=== PATIENT | female | born 1995 | race Caucasian/White ===

== ENCOUNTER 2020-03-12 11:42 | Emergency (ER) | payer BC, MEDICAID, SELFPAY ==
[2020-03-12 11:50] VITALS: PULSE 80; RESP 18; TEMP 36.4; O2SAT 98; BMI 25.7
--- NOTE | 2020-03-12 11:54 | HMH.EDUTC ---
[facility] [place] Dis[place] Clinical Impression: Exposure to COVID-19 virus Disposition: Home, Self-Care Condition on Discharge: Good Instructions: Preventing the Spread of Coronavirus Discharge Instructions Additional Instructions: Drink plenty of fluids. Take tylenol for pain or fever. Return if you begin to have difficulty breathing. Follow up with your regular doctor. GO TO THE ER FOR ANY WORSENING SYMPTOMS Referrals: Kit Hutchins MD [Primary Care Provider] - Time of Disposition: 12:12 Medical Decision Making - Medical Records Medical records reviewed: No: I reviewed the patient's medical records. - Jose Inquiry Pt receiving controlled substance: No Vital Signs: 03/12/20 11:50 03/12/20 12:23 Temperature 97.5 F L 97.5 F L Temperature Source Temporal Artery Scan Pulse Rate 80 Pulse Rate [Right Brachial] 80 Respiratory Rate 18 18 Blood Pressure 00/00 L 02 Sat by Pulse Oximetry 98 Oxygen Delivery Method Room Air - Lab Data Lab Results 03/12/20 11:50: SARS-CoV-2 (PCR) Detected [facility] [place] HPI - General Stated complaint: covid exposure Time Seen by Provider: 03/12/20 11:55 - History of Present Illness Provider Complaint: She states that she may have been exposed to covid and she needs to be tested. - Related Data Allergies Allergy/AdvReac Type Severity Reaction Status Date / Time No Known Allergies Allergy Verified 04/25/18 17:00 [facility] History - Hepatitis A Screen Attestation statement:: This patient has been screened for Hepatitis A risk factors. I have reviewed the patient's past medical history: Yes ROS Obtained: Yes All systems reviewed & no additional complaints - Constitutional Constitutional: Reports system reviewed and no additional complaints, except as docu - Eyes Eyes: Reports system reviewed and no additional complaints, except as docu - ENT Ears, Nose, Mouth, and Throat: Reports system reviewed and no additional complaints, except as docu - Cardiovascular Cardiovascular: Reports system reviewed and no additional complaints, except as docu - Respiratory Respiratory: Yes system reviewed and no additional complaints, except as docu - Gastrointestinal Gastrointestingal: Reports: system reviewed and no additional complaints, except as docu Physical Exam - General General appearance: alert, in no apparent distress - Head Head exam: atraumatic, normocephalic, normal inspection - Eye Eye exam: Present: normal appearance, PERRL, EOMI - ENT ENT exam: Present: normal exam, normal oropharynx, mucous membranes moist, TM's normal bilaterally, normal external ear exam - Neck Neck exam: Present: normal inspection, full ROM, trachea midline. Absent: meningismus, lymphadenopathy - Chest Chest inspection: Present: normal inspection, symmetric chest wall rise. Absent: tenderness - Respiratory Respiratory exam: Present: normal lung sounds bilaterally. Absent: respiratory distress - Cardiovascular Cardiovascular exam: Present: regular rate, normal rhythm. Absent: JVD - Abdominal Exam Abdominal exam: Present: soft, normal bowel sounds. Absent: distention, tenderness, guarding - Extremities Exam Extremities exam: Present: normal inspection, full ROM, normal capillary refill. Absent: calf tenderness - Back Exam Back exam: Present: normal inspection. Absent: tenderness - Neurological Exam Neurological exam: Present: alert, oriented X3 - Psychiatric Psychiatric exam: Present: normal affect, normal mood - Skin Skin exam: Present: warm, dry, intact, normal color - Lymphatic Lymphatic Findings: no adenopathy
[2020-03-12 12:23] VITALS: BP 00/00; PULSE 80; RESP 18; TEMP 36.4; O2SAT 98
[2020-03-13 09:28] LABS: Covid-19 Nasal PCR Sendout UK DETECTED
--- NOTE | 2020-03-13 09:31 | PC.NURSE ---
patient notified of positive covid test results
== END 2020-03-12 12:25 | disposition home or self-care (01) ==
PROVIDERS: Emergency Provider Nurse Practitioner Family; PCP Family Medicine
DX: U07.1 COVID-19 (principal)
CPT/HCPCS: 99201; U0003

== ENCOUNTER 2020-03-19 13:24 | Emergency (ER) | payer BC, MEDICAID, SELFPAY ==
--- NOTE | 2020-03-19 13:43 | PC.NURSE ---
States that she tested positive for COVID 10 days ago and was recently released out of quarantine by the Health Department. Here for a retest because she thought it was a requirement. Per patient if the retest was not required she did not want to get tested and would rather just go on home.
[2020-03-19 13:44] VITALS: BP 0/0; PULSE 0; RESP 0; TEMP -17.7; TEMP 0; O2SAT 0
== END 2020-03-19 13:45 | disposition left against medical advice (07) ==
LOC: UTC 13:37
PROVIDERS: Emergency Provider Nurse Practitioner; PCP Family Medicine
DX: Z53.21 Procedure and treatment not carried out due to patient leaving prior to being seen by health care provider (principal)

== ENCOUNTER → 2020-04-10 11:17 | Outpatient (CLI) | payer MEDICAID, SELFPAY | PROVIDERS: PCP Family Medicine; Visit Provider Nurse Practitioner Family | DX: Z11.1 Encounter for screening for respiratory tuberculosis (principal) ==

== ENCOUNTER 2020-11-25 13:46 | Emergency (ER) | payer BC, MEDICAID, SELFPAY ==
[2020-11-25 13:46] VITALS: BP 149/83; PULSE 87; RESP 20; TEMP 37.6; O2SAT 100; BMI 24.0
--- NOTE | 2020-11-25 15:17 | HMH.EDUTC ---
[facility] [place] Clinical Impression: Pharyngitis Qualifiers: Pharyngitis/tonsillitis etiology: unspecified etiology Qualified Code(s): J02.9 - Acute pharyngitis, unspecified Disposition: Home, Self-Care Condition on Discharge: Good Instructions: DI for Strep Throat Additional Instructions: Drink plenty of fluids. Take tylenol or ibuprofen for pain or fever. Take the medications as directed. Follow up with your regular doctor. GO TO THE ER FOR ANY WORSENING SYMPTOMS Throw your tooth brush away and get a new one. Quarantine until you know the results of your covid-19 test. If it is positive, the health department should call you and give you further instructions about your length of Quarantine and other things. Notify your school or workplace of your results and follow their instructions regarding return to work/school. Prescriptions: Brompheniramine/Pseudoephed/Dm [Bromfed Dm Cough Syrup] 5 ml PO Q6HP PRN #240 ml PRN Reason: Cough Transmission Status: Received by [facility] #[id number] Amoxicillin [Amoxicillin 500mg Tab] 500 mg PO TID 10 Days #30 tab Transmission Status: Received by [facility] #[id number] predniSONE [Deltasone 10mg tablet] 10 mg PO BID 3 Days #6 tab Transmission Status: Received by [facility] #[id number] Referrals: Elder Lobato [Primary Care Provider] - Time of Disposition: 15:21 Medical Decision Making - Medical Records Medical records reviewed: No: I reviewed the patient's medical records. - Jose Inquiry Pt receiving controlled substance: No Vital Signs: 11/25/20 13:46 Temperature 99.7 F H Temperature Source Oral Pulse Rate [Left Radial] 87 Respiratory Rate 20 Blood Pressure [Right Arm] 149/83 H Blood Pressure Mean [Right Arm] 105 Blood Pressure Source [Right Arm] Automatic Cuff Blood Pressure Position [Right Arm] Sitting 02 Sat by Pulse Oximetry 100 Oxygen Delivery Method Room Air - Lab Data Lab results reviewed: Yes: I reviewed the patient's lab results. Orders (Tests/Meds): ORDERS Category Date Time Status Covid-19 Nasal PCR ([facility]) Routine Lab 11/25/20 15:30 Ordered [facility] [place] - General Stated complaint: possible strep Time Seen by Provider: 11/25/20 13:50 Mode of Arrival: Ambulatory Source of Information: Patient Limitations: No Limitations Description of Symptoms (Recalled from Triage Doc. by RN): sore throat and MEDLEY HEENT Symptoms (Recalled from RN notes): Yes Resp Symptoms (Recalled from RN notes): No Skin Symptoms (Recalled from RN notes): No MS Symptoms (Recalled from RN notes): No Functional Status (Recalled from RN notes): na - History of Present Illness Provider Complaint: She c/o sore throat for the past 2 days. She has ran a low grade fever also. She denies any known exposure to covid-19. - Related Data Previous Rx's Medication Instructions Recorded Amoxicillin [Amoxicillin 500mg Tab] 500 mg PO TID 10 Days #30 tab 11/25/20 Brompheniramine/Pseudoephed/Dm 5 ml PO Q6HP PRN #240 ml 11/25/20 [Bromfed Dm Cough Syrup] predniSONE [Deltasone 10mg tablet] 10 mg PO BID 3 Days #6 tab 11/25/20 Allergies Allergy/AdvReac Type Severity Reaction Status Date / Time No Known Allergies Allergy Verified 04/25/18 17:00 - Worker's Comp Is this a Worker's Comp case?: No [facility] History - Hepatitis A Screen Drug use history?: No High risk sexual behaviors?: No History of sexually transmitted infection?: No Currently employed?: No Childcare worker?: No Do you have indoor plumbing?: Yes Do you have electricity?: Yes Attestation statement:: This patient has been screened for Hepatitis A risk factors. I have reviewed the patient's past medical history: Yes - Social History Alcohol Intake: never Occupational Status: other ROS Obtained: Yes All systems reviewed & no additional complaints - Constitutional Constitutional: Reports as per HPI - Eyes Eyes: Denies eye discharge - ENT Ears, Nose, Mouth,
[2020-11-25 15:36] VITALS: BP 149/83; PULSE 87; RESP 20; TEMP 37.6; O2SAT 100
[2020-11-27 09:17] LABS: UTC Strep Screen (Rapid) Negative (Negative)
== END 2020-11-25 15:38 | disposition home or self-care (01) ==
PROVIDERS: Emergency Provider Nurse Practitioner Family; PCP Pediatrics
DX: J02.9 Acute pharyngitis, unspecified (principal); Z20.822 Contact with and (suspected) exposure to COVID-19
CPT/HCPCS: 87880; 99203; G0463; U0003

== ENCOUNTER → 2021-12-06 09:00 | Outpatient (CLI) | payer BC, MEDICAID, SELFPAY ==
[2021-12-06 09:24] VITALS: BMI 20.9
== END ==
PROVIDERS: Visit Provider Nurse Practitioner Family
DX: Z11.1 Encounter for screening for respiratory tuberculosis (principal)
CPT/HCPCS: 86580

== ENCOUNTER 2022-05-13 08:57 | Emergency (ER) | payer BC, MEDICAID, SELFPAY ==
[2022-05-13 09:05] VITALS: BP 123/70; PULSE 101; RESP 18; TEMP 36.9; O2SAT 98; BMI 23.9
--- NOTE | 2022-05-13 09:30 | EXP.UTC ---
Discharge Plan Disposition Patient Disposition: Home, Self-Care Condition: Good Referrals Follow up/Referrals: Provider,Referral, [Primary Care Provider] - See instructions Activity Restrictions/Add. Instructions Additional Instructions/Restrictions: *Monitor Temp, Over the counter Motrin or Tylenol as directed/as needed Tylenol every 4 hours and Motrin every 6 hours (as long as your family doctor has told you that you can take it) for fever or pain. and straight to ER if unable to lower temp less than 101.0 after medication given *Warm salt water gargles may help to soothe the throat *Throat Lozenges? *Warm fluids like tea with honey may help to soothe the throat? *Sleep elevated *Humidifier/Vaporizer Over the counter Sudafed may help with nasal congestion if you can take it Over the counter Robitussin may help with cough Your throat swab was sent for culture. Those results are typically sent to your primary care. Be sure to follow up in 2-3 days with your family doctor/primary care physician if no improvement so they can review those result and treat if necessary. If you don?t have a primary care doctor, I recommend you get one but in the mean time, you will have to return to a walk in clinic Follow up IMMEDIATELY for new or worsening symptoms or no Noticeable improvement over the next 48-72 hours. 911 for difficulty breathing or swallowing You were tested for today for COVID19 your test result should be back in the next 24-48 hours, you may check your results on the [facility] Clinical Impressions Clinical Impression: Viral upper respiratory infection Stand Alone Forms Stand Alone Forms: Work/School Release Instructions Patient Instructions: DI for Nasal Congestion, Cough, Sore Throat Discharge ED Provider: [place]ancourt [facility] [place] General Stated complaint: Headache sore throat fever covid test Mode of Arrival: Ambulatory Source of Information: Patient Limitations: No Limitations Time Seen by Provider: 05/13/22 09:30 Description of Symptoms (Recalled from Triage Doc. by RN): PATIENT C/O BODY ACHES, HEADACHE AND SINUS PRESSURE X 3 DAYS HEENT Symptoms (Recalled from RN notes): Yes Resp Symptoms (Recalled from RN notes): No Skin Symptoms (Recalled from RN notes): No MS Symptoms (Recalled from RN notes): No Functional Status (Recalled from RN notes): WNL History of Present Illness Provider Complaint: Patient states that she was around her friends son last week that has since tested positive for COVID States that she has been having sinus congestion, sore throat, body aches and chills for the last couple of days and she wanted to come in and get tested for Strep throat and COVID Related Data Allergies Allergy/AdvReac Type Severity Reaction Status Date / Time No Known Allergies Allergy Verified 04/25/18 17:00 Worker's Comp Is this a Worker's Comp case?: No [facility] Disclaimer: The information contained in this section may have been updated after the patient was seen, as this information can be updated by other users. Medical History (Updated 05/13/22 @ 09:37 by Harmony Betancourt APRN) No significant past medical history Social History (Updated 05/13/22 @ 09:17 by Marzena Waters RN) Smoking Status: Unknown if ever smoked alcohol intake: never current occupational status: other Travel in the last 8 weeks: None ROS Obtained: Yes All systems reviewed & no additional complaints except as documented and Yes Systems reviewed as appropriate & no additional complaints except as documented Constitutional Constitutional: Reports system reviewed and no additional complaints, except as documented, Reports as per HPI, Reports body ache, Reports chills and Reports headache(s) ENT Ears, Nose, Mouth, and Throat: Reports system reviewed and no additional complaints, except as documented, Reports as per HPI, Reports headache(s), Reports nasal congestion and Reports sore thr
[2022-05-13 09:38] LABS: Influenza A, PCR Not Detected (NotDetected); Influenza B, PCR Not Detected (NotDetected)
[2022-05-13 09:39] VITALS: BP 123/70; PULSE 101; RESP 18; TEMP 36.9; O2SAT 98
[2022-05-13 09:39] LABS: UTC Strep Screen (Rapid) Negative (Negative)
[2022-05-13 10:16] LABS: Coronavirus 19, PCR Detected (NotDetected)
== END 2022-05-13 09:43 | disposition home or self-care (01) ==
PROVIDERS: Emergency Provider Nurse Practitioner
DX: U07.1 COVID-19 (principal); R51.9 Headache, unspecified; J02.9 Acute pharyngitis, unspecified; R50.9 Fever, unspecified
CPT/HCPCS: 87880; 99212; 99213; C9803; G0463; U0003; U0005

== ENCOUNTER 2023-01-17 08:20 | Emergency (ER) | payer BC, MEDICAID, SELFPAY ==
[2023-01-17 08:30] VITALS: BP 111/68; PULSE 85; RESP 20; TEMP 36.9; O2SAT 98; BMI 25.9
--- NOTE | 2023-01-17 08:42 | EXP.UTC ---
Discharge Plan Disposition Patient Disposition: Home, Self-Care Condition: Good Prescriptions Prescriptions: New azithromycin [Zithromax] 250 mg tablet 250 mg PO UD DOSE PK Qty: 6 0RF Rx Instructions: Take two (2) tablets today, then one (1) tablet days #2 thru #5 methylprednisolone 4 mg Tablets,Dose Pack 4 mg PO DIRECTED Qty: 21 0RF [id number] [Bromfed DM] 2-30-10 mg/5 mL Syrup 5 ml PO Q6H PRN (Reason: Cough) Qty: 240 0RF Referrals Follow up/Referrals: Provider,Referral, [Primary Care Provider] - See instructions Activity Restrictions/Add. Instructions Additional Instructions/Restrictions: Drink plenty of fluids. Take tylenol or ibuprofen for pain or fever. Take the medications as directed. Follow up with your regular doctor. GO TO THE ER FOR ANY WORSENING SYMPTOMS Clinical Impressions Clinical Impression: Bronchitis, Acute viral syndrome Stand Alone Forms Stand Alone Forms: Work/School Release Instructions Patient Instructions: DI for Viral Syndrome Discharge ED Provider: Liam Arias [facility] [place] General Stated complaint: headache,sore throat,runny nose Time Seen by Provider: 01/17/23 08:41 History of Present Illness Provider Complaint: She states that for the past 4 days she has had sinus and chest congestion, low grade fever, chills, and sore throat. 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 Related Data Previous Rx's Medication Instructions Recorded azithromycin 250 mg tablet 250 mg PO UD DOSE PK #6 tabs 01/17/23 (Zithromax) azrkysumabhzvdj-ubwcccicaejxoyh-OR 5 ml PO Q6H PRN Cough #240 mL 01/17/23 2 mg-30 mg-10 mg/5 mL oral syrup (Bromfed DM) methylprednisolone 4 mg tablets in 4 mg PO DIRECTED #21 tabs 01/17/23 a dose pack Allergies Allergy/AdvReac Type Severity Reaction Status Date / Time No Known Allergies Allergy Verified 04/25/18 17:00 [facility] Disclaimer: The information contained in this section may have been updated after the patient was seen, as this information can be updated by other users. Medical History (Updated 01/17/23 @ 08:53 by Liam Arias APRN) No significant past medical history Social History (Updated 05/13/22 @ 09:17 by Marzena Waters RN) Smoking Status: Unknown if ever smoked alcohol intake: never current occupational status: other Travel in the last 8 weeks: None ROS Obtained: Yes All systems reviewed & no additional complaints except as documented Constitutional Constitutional: Reports chills and Reports fever(s) Eyes Eyes: Denies eye discharge ENT Ears, Nose, Mouth, and Throat: Reports as per HPI Cardiovascular Cardiovascular: Denies chest pain Respiratory Respiratory: Denies chest congestion and Reports cough Gastrointestinal Gastrointestingal: Reports nausea; Denies abdominal pain, constipation, cramping, diarrhea or vomiting Musculoskeletal Musculoskeletal: Denies arthralgias Integumentary/Breasts Skin/Breast: Denies rash Neurologic Neurologic: Denies paresthesias Physical Exam General General appearance: alert and in no apparent distress Head Head exam: atraumatic, normocephalic and normal inspection Eye Eye exam: Present normal appearance, PERRL and EOMI ENT ENT exam: Present mucous membranes moist and normal external ear exam Expanded ENT Exam TM/Canal exam: Bilateral TM: erythema and bulging Nose exam: Absent sinus tenderness Mouth exam: Present normal external inspection; Absent drooling Teeth exam: Present normal inspection Throat exam: Present tonsillar erythema, tonsillomegaly and tonsillar exudate Neck Neck exam: Present normal inspection, full ROM and trachea midline; Absent tenderness, meningismus or lymphadenopathy Chest Chest inspection: Present normal inspection and symmetric chest wall rise; Absent tenderness Respiratory Respiratory exam: Present normal lung sounds bilaterally; Absent resp
[2023-01-17 08:48] LABS: UTC Strep Screen (Rapid) Negative (Negative)
[2023-01-17 08:50] VITALS: BP 111/68; PULSE 85; RESP 20; TEMP 36.9; O2SAT 98
== END 2023-01-17 08:57 | disposition home or self-care (01) ==
PROVIDERS: Emergency Provider Nurse Practitioner Family
DX: J20.9 Acute bronchitis, unspecified (principal); J02.9 Acute pharyngitis, unspecified; B34.9 Viral infection, unspecified; Z20.822 Contact with and (suspected) exposure to COVID-19
CPT/HCPCS: 87635; 87880; 99212; 99214; G0463

== ENCOUNTER 2023-02-08 08:09 | Emergency (ER) | payer BC, MEDICAID, SELFPAY ==
[2023-02-08 08:30] VITALS: BP 128/86; PULSE 98; RESP 21; TEMP 36.8; O2SAT 100; BMI 24.0
--- NOTE | 2023-02-08 08:56 | EXP.UTC ---
Discharge Plan Disposition Patient Disposition: Home, Self-Care Condition: Good Prescriptions Prescriptions: New amoxicillin 500 mg capsule 500 mg PO TID 7 Days Qty: 21 0RF fluticasone propionate [Flonase Allergy Relief] 50 mcg/actuation spray,suspension 1 - 2 spray intranasal DAILY Qty: 16 0RF Rx Instructions: administer into each nostril daily Referrals Follow up/Referrals: Provider,Referral, MD [Primary Care Provider] - See instructions Activity Restrictions/Add. Instructions Additional Instructions/Restrictions: Take medication as prescribed Follow up with ENT if no improvement or any worsening of symptoms Return if needed Straight to ER if any life threatening symptoms Clinical Impressions Clinical Impression: Otitis media Qualifiers: Otitis media type: unspecified Laterality: left Qualified Code(s): H66.92 - Otitis media, unspecified, left ear Instructions Patient Instructions: Middle Ear Infection Discharge ED Provider: Harmony Betancourt [facility] General Stated complaint: ear irritation Mode of Arrival: Ambulatory Source of Information: Patient Limitations: No Limitations Time Seen by Provider: 02/08/23 08:57 Description of Symptoms (Recalled from Triage Doc. by RN): PATIENT STATES SHE HAS HAD A SWOOSHING SOUND IN LEFT EAR X 2 DAYS HEENT Symptoms (Recalled from RN notes): Yes Resp Symptoms (Recalled from RN notes): No Skin Symptoms (Recalled from RN notes): No MS Symptoms (Recalled from RN notes): No Functional Status (Recalled from RN notes): WNL History of Present Illness Provider Complaint: Patient states that she has been having pressure and swooshing sound on and off in her left ear for several weeks that has become more consistent over the last couple of days States that this morning it was bothering her mores so she came in Related Data Previous Rx's Medication Instructions Recorded amoxicillin 500 mg capsule 500 mg PO TID 7 days #21 caps 02/08/23 fluticasone propionate 50 1 - 2 spray intranasal DAILY #16 02/08/23 mcg/actuation nasal grams spray,suspension (Flonase Allergy Relief) Allergies Allergy/AdvReac Type Severity Reaction Status Date / Time No Known Allergies Allergy Verified 04/25/18 17:00 Worker's Comp Is this a Worker's Comp case?: No [facility] Disclaimer: The information contained in this section may have been updated after the patient was seen, as this information can be updated by other users. Medical History (Updated 02/08/23 @ 09:04 by Harmony Betancourt APRN) No significant past medical history Social History (Updated 05/13/22 @ 09:17 by Marzena Waters RN) Smoking Status: Unknown if ever smoked alcohol intake: never current occupational status: other Travel in the last 8 weeks: None ROS Obtained: Yes All systems reviewed & no additional complaints except as documented and Yes Systems reviewed as appropriate & no additional complaints except as documented Constitutional Constitutional: Reports system reviewed and no additional complaints, except as documented and Reports as per HPI ENT Ears, Nose, Mouth, and Throat: Reports system reviewed and no additional complaints, except as documented, Reports as per HPI and Reports otalgia Cardiovascular Cardiovascular: Reports system reviewed and no additional complaints, except as documented and Reports as per HPI Respiratory Respiratory: Reports system reviewed and no additional complaints, except as documented and Reports as per HPI Gastrointestinal Gastrointestingal: Reports system reviewed and no additional complaints, except as documented and as per HPI Musculoskeletal Musculoskeletal: Reports system reviewed and no additional complaints, except as documented and Reports as per HPI Integumentary/Breasts Skin/Breast: Reports system reviewed and no additional complaints, except as documented and Reports as per HPI Neurologic Neurologic: Reports system reviewed and no additional co
[2023-02-08 09:05] VITALS: BP 128/86; PULSE 98; RESP 21; TEMP 36.8; O2SAT 100
== END 2023-02-08 09:08 | disposition home or self-care (01) ==
PROVIDERS: Emergency Provider Nurse Practitioner
DX: H66.92 Otitis media, unspecified, left ear (principal)
CPT/HCPCS: 99212; 99214; G0463

== ENCOUNTER 2023-06-17 09:25 | Outpatient (POV) | payer MEDICAID, SELFPAY | END 2023-06-17 23:59 | disposition home or self-care (01) | LOC: SC 09:25 | PROVIDERS: Visit Provider Specialist/Technologist | DX: Z00.00 Encounter for general adult medical examination without abnormal findings (principal) ==

== ENCOUNTER 2023-11-15 11:13 | Outpatient (CLI) | payer MEDICAID, SELFPAY ==
[2023-11-15 11:20] VITALS: BMI 17.6
[2023-11-15] MEDS: TUBERCULIN 5 UNITS/0.1ML 1ML VIAL ID (11:26)
== END 2023-11-15 11:30 | disposition home or self-care (01) ==
LOC: UTC.OUT 11:15
PROVIDERS: Visit Provider Nurse Practitioner Family
DX: Z11.1 Encounter for screening for respiratory tuberculosis (principal)
CPT/HCPCS: 86580

== ENCOUNTER 2023-12-29 16:40 | Emergency (ER) | payer MEDICAID, SELFPAY ==
--- NOTE | 2023-12-29 16:45 | XR_ITS ---
PROCEDURE INFORMATION: Exam: XR Right Foot Exam date and time: 12/29/2023 4:40 PM Age: 28 years old Clinical indication: Injury or trauma; Fall; Blunt trauma; Foot; Right; Additional info: Pain TECHNIQUE: Imaging protocol: Radiologic exam of the right foot. Views: 3 or more views. COMPARISON: No relevant prior studies available. FINDINGS: Bones/joints: Osseous alignment is normal. No acute fracture. No significant arthritic change. Soft tissues: Normal. IMPRESSION: Negative right foot
--- NOTE | 2023-12-29 16:45 | XR_ITS ---
PROCEDURE INFORMATION: Exam: XR Right Ankle Exam date and time: 12/29/2023 4:41 PM Age: 28 years old Clinical indication: Injury or trauma; Fall; Blunt trauma; Ankle; Right; Additional info: Pain TECHNIQUE: Imaging protocol: Radiologic exam of the right ankle. Views: 3 or more views. COMPARISON: CR XR FOOT RT MIN 3V 12/29/2023 4:40 PM FINDINGS: Bones/joints: Osseous alignment is normal. No acute fracture. No significant arthritic change. Soft tissues: Normal. IMPRESSION: Negative right ankle
[2023-12-29 17:04] VITALS: BP 123/63; PULSE 89; RESP 20; TEMP 36.9; O2SAT 97; BMI 26.5
--- NOTE | 2023-12-29 17:28 | ED_ITS ---
Discharge Plan Disposition Patient Disposition: Home, Self-Care Condition: Good Prescriptions Prescriptions: New ibuprofen 600 mg tablet 600 mg PO Q6HP PRN (Reason: Mild Pain) Qty: 30 0RF No Action methylprednisolone 4 mg tablets,dose pack 4 mg PO PER PKG DIR Qty: 21 0RF Referrals Follow up/Referrals: Kit Hutchins MD [Primary Care Provider] - See instructions Zaynab Hicks DPM [Staff Physician] - See instructions Activity Restrictions/Add. Instructions Additional Instructions/Restrictions: Rest the extremity, apply ice for 15 minutes as tolerated three or four times per day, Elevate the extremity as tolerated while you are resting. Take ibuprofen for pain. I sent in a prescription to your pharmacy. Follow up with Dr. Hicks (podiatry). I put in a referral but you need to call her office and schedule an appointment. Follow up with your regular doctor. GO TO THE ER FOR ANY WORSENING SYMPTOMS Clinical Impressions Clinical Impression: Right ankle sprain, Pain in right ankle Stand Alone Forms Stand Alone Forms: Work/School Release Instructions Patient Instructions: How to Use Crutches, DI for Ankle Sprain, DI for Foot Sprain Print Language Print Language: Puerto Rican Discharge ED Provider: Liam Arias [facility] [place] HPI General Stated complaint: AO 10-6 hurt right ankle and foot Mode of Arrival: Ambulatory Source of Information: Patient Time Seen by Provider: 12/29/23 17:28 Description of Symptoms (Recalled from Triage Doc. by RN): TWISTED RIGHT ANKLE HEENT Symptoms (Recalled from RN notes): No Resp Symptoms (Recalled from RN notes): No Skin Symptoms (Recalled from RN notes): No MS Symptoms (Recalled from RN notes): Yes Functional Status (Recalled from RN notes): UNABLE TO BEAR WEIGHT History of Present Illness Provider Complaint: She states that she twisted her right foot and ankle earlier today. Since then she has had right foot and ankle pain and swelling. Related Data Previous Rx's ?Medication ?Instructions ?Recorded ibuprofen 600 mg tablet 600 mg PO Q6HP PRN Mild Pain #30 12/29/23 tabs methylprednisolone 4 mg tablets in 4 mg PO PER PKG DIR Pain, swelling 12/31/23 a dose pack #21 tabs Allergies Allergy/AdvReac Type Severity Reaction Status Date / Time No Known Allergies Allergy Verified 12/31/23 15:24 Worker's Comp Is this a Worker's Comp case?: No [facility] Disclaimer: The information contained in this section may have been updated after the patient was seen, as this information can be updated by other users. 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 Tinnitus Otitis media Acute viral syndrome Bronchitis Viral upper respiratory infection No significant past medical history Pharyngitis Patient left without being seen Exposure to COVID-19 virus Surgical History No significant past surgical history Family History (Reviewed 12/31/23 @ :24 by WILLIAN Cooper) Other No significant family history Social History (Reviewed 12/31/23 @ :24 by WILLIAN Cooper) Smoking Status: Unknown if ever smoked alcohol intake: never current occupational status: other Travel in the last 8 weeks: None ROS Obtained: Yes All systems reviewed & no additional complaints except as d ocumented Constitutional Constitutional: Denies chills and Denies fever(s) Eyes Eyes: Denies eye discharge ENT Ears, Nose, Mouth, and Throat: Denies dizziness, Denies otalgia and Denies sore throat Cardiovascular Cardiovascular: Denies chest pain Respiratory Respiratory: Denies shortness of breath, Denies chest congestion, Denies cough, Denies stridor and Denies wheezing Gastrointestinal Gastrointestingal: Denies nausea or vomiting Musculoskeletal Musculoskeletal: Reports as per HPI Integumentary/Breasts Skin/Breast: Denies rash Neurologic Neurologic: Denies dizziness and Denies paresthesias Allergic/Immunologic Allergic/Immunologic: Denies wheezing Physical Exam General General appearance: alert and in no apparent distress Head Head exam: atraumatic, normocephalic and normal inspection Eye Eye exam: Present normal appearance, PERRL and EOMI ENT ENT exam: Present normal exam, normal oropharynx, mucous membranes moist, TM's normal bilaterally and normal external ear exam Neck Neck exam: Present normal inspection, full ROM and trachea midline; Absent meningismus or lymphadenopathy Chest Chest inspection: Present normal inspection and symmetric chest wall rise; Absent tenderness Respiratory Respiratory exam: Present normal lung sounds bilaterally; Absent respiratory distress Cardiovascular Cardiovascular exam: Present regular rate and normal rhythm; Absent JVD Abdominal Exam Abdominal exam: Present soft and normal bowel sounds; Absent distention, tenderness or guarding Extremities Exam Extremities exam: Present normal capillary refill; Absent calf tenderness Expanded Lower Extremity Exam Right: Knee exam: Present normal inspection, full ROM and knee extension intact; Absent tenderness Lower leg exam: Present normal inspection, full ROM and Achilles tendon intact; Absent tenderness or Homans' sign Ankle exam: Present tenderness and swelling; Absent full ROM, abrasion, laceration, ecchymosis, deformity, crepitus, dislocation, erythema, tenderness over talofibular lig or anterior draw sign Foot/toe exam: Present tenderness and swelling; Absent full ROM, abrasion, laceration, ecchymosis, deformity, crepitus, dislocation, erythema, amputation, puncture wound, foreign body, calcaneal tenderness, tenderness at base of 5th metatarsal, nail avulsion or subungual hematoma Neurovascular/Tendon exam: Present normal capillary refill, normal 2-point discrimination and normal fine/light touch; Absent pulse deficit, motor deficit, sensory deficit, tendon deficit, extremity cold to touch or pallor Gait: observed and limited by pain Back Exam Back exam: Present normal inspection; Absent tenderness Neurological Exam Neurological exam: Present alert and oriented X3 Psychiatric Psychiatric exam: Present normal affect and normal mood Skin Skin exam: Present warm, dry, intact and normal color Lymphatic Lymphatic Findings: no adenopathy Medical Decision Making Medical Records Medical records reviewed: No I reviewed the patient's medical records. Screening: Per USPSTF and CDC recommendations, given the prevalence of disease in our region, it is our hospital?s policy to screen for HIV and viral Hepatitis for all patients aged 18 and over and those with ongoing risk factors. Jose Inquiry Pt receiving controlled substance: No Vital Signs: 12/29/23 17:04 Temperature 98.5 F Temperature Source Oral Pulse Rate [Left Radial] 89 Respiratory Rate 20 Blood Pressure [Left Arm] 123/63 Blood Pressure Mean [Left Arm] 83 02 Sat by Pulse Oximetry 97 Orders (Tests/Meds): ORDERS Category Date Time Status Ankle XR -Right minimum 3 Views [XR ankle RT min 3V] Exams 12/29/23 16:45 Taken Stat XR foot RT min 3V Stat Exams 12/29/23 16:45 Taken
[2023-12-29 18:41] VITALS: BP 123/63; PULSE 89; RESP 20; TEMP 36.9
== END 2023-12-29 18:48 | disposition home or self-care (01) ==
PROVIDERS: Emergency Provider Nurse Practitioner Family; PCP Family Medicine
DX: S93.401A Sprain of unspecified ligament of right ankle, initial encounter (principal); X50.0XXA Overexertion from strenuous movement or load, initial encounter
CPT/HCPCS: 73610; 73630; 99213; G0381

== ENCOUNTER 2024-02-06 16:38 | Outpatient (RCR) | payer MEDICAID, SELFPAY ==
--- NOTE | 2024-02-06 17:06 | HMH.PTOPEV ---
PT Outpatient Evaluation Rehab PT Outpatient Evaluation Start: 02/06/24 16:43 Freq: Status: Active Protocol: Document 02/06/24 17:00 ANDERSON (Rec: 02/06/24 17:06 GIANNAOLGAGUILLERMO [id number]) E-signed By Jeffrey rGanger, PT Outpatient Therapy Subjective History Subjective History Pt is a 28 yof who presents to OP Physical Therapy following an inversion ankle sprain of her R ankle on 12/29/2023. She reports she was taking out the garbage and stepped off the porch and twisted her ankle. She reports she went to the [facility] and had an x-ray which showed no fractures. She reports she was in a walking boot for a few days. She has been back to work for two weeks now and is having no trouble with it. She reports no swelling, no pain throughout the day other than a mild ache when she first wakes up. Patient reports that she does not think she needs PT. New diagnosis of cancer in past 12 No months? Chief Complaint Pain Symptom Type Ache Symptoms Relieved By Rest/Positioning,Ice Prior Functional Limitations None Current Functional Limitations None Symptom Description Intermittent Level of pain today (0-10) 0 Pain scale - at its best (0-10) 0 Pain scale - at its worst (0-10) 3 Ankle/Foot Eval Gait Observation General Gait Pattern Observation No Deviations/Normal Palpation Tenderness bilateral Ankle/Foot Palpation Overall Comment No TTP. No special tests positive. No swelling noted. ROM Ankle/Foot ROM Reason Not Measured Within Functional Limits Lower Extremity Functional Index Activities Today, do you or would you have any difficulty at all with: a.Any of your usual work, housework or No difficulty school activities b. Your usual hobbies, recreational or No difficulty sporting activities c. Getting into or out of the bath No difficulty d. Walking between rooms No difficulty e. Putting on your shoes or socks No difficulty f. Squatting No difficulty g. Lifting an object, like a bag of No difficulty groceries from the floor h. Performing light activities around No difficulty your home i. Performing heavy activities around No difficulty your home j. Getting into or out of a car No difficulty k. Walking 2 blocks No difficulty l. Walking a mile No difficulty m. Going up or down 10 stairs (about 1 No difficulty flight of stairs) n. Standing for 1 hour No difficulty o. Sitting for 1 hour No difficulty p. Running on even ground A little bit of difficulty q. Running on uneven ground A little bit of difficulty r. Making sharp turns while running fast A little bit of difficulty s. Hopping A little bit of difficulty t. Rolling over in bed No difficulty LEFI Score Lower Extremity Functional Index Score 76 Outpatient Therapy Assessment Prognosis Rehab Potential Good Comment Pt demonstrates no impairments or functional limitations at this time. Skilled PT is not indicated for this pt. Clinical Impression Consistent with Diagnosis Yes Outpatient Therapy Plan of Care Addendums This patient is a candidate for social No or vocational rehab? Patient/Guardian verbally acknowledges Yes understanding of treatment program and consents to further treatment? Patient/Guardian verbally acknowledges Yes understanding of diagnosis, prognosis and goals for treatment? Eval Complexity PT Charges 40489 - Low Complexity Shoulder/Elbow Eval Shoulder Objective Measurements Elbow Objective Measurements PHYSICIAN CERTIFICATION: I certify the specified therapy services for Amarilis Harrison are required, authorized, and reviewed every 30 days.
== END 2024-02-06 23:59 | disposition home or self-care (01) ==
LOC: PT 16:38
PROVIDERS: PCP Family Medicine; Visit Provider Podiatrist
DX: M25.571 Pain in right ankle and joints of right foot (principal)
CPT/HCPCS: 97163

== ENCOUNTER 2024-02-11 14:09 | Outpatient (CLI) | payer MEDICAID, SELFPAY ==
--- NOTE | 2024-02-11 14:14 | US_ITS ---
FINAL REPORT CLINICAL HISTORY: bilat lymphadenopathy FINDINGS: Limited sonographic images of the soft tissue neck were obtained. There are multiple bilateral cervical lymph nodes. Individual nodes measure up to 3 cm in maximum dimension on the right and 2.7 cm on the left. Nodes are enlarged but appear to have a fatty edith, favor reactive rather than neoplastic. IMPRESSION: Multiple bilateral enlarged cervical lymph nodes, favor reactive. Recommend clinical correlation and repeat ultrasound in 8 weeks. Reviewed, Interpreted and Dictated by Yadiel Pereira MD Transcribed by Reva Mak Authenticated and . [facility]
== END 2024-02-11 23:59 | disposition home or self-care (01) ==
LOC: RAD 14:09
PROVIDERS: PCP Nurse Practitioner; Visit Provider Nurse Practitioner
DX: I88.9 Nonspecific lymphadenitis, unspecified (principal)
CPT/HCPCS: 76536

== ENCOUNTER 2024-03-26 13:11 | Outpatient (CLI) | payer MEDICAID, SELFPAY ==
--- NOTE | 2024-03-26 13:12 | US_ITS ---
FINAL REPORT TECHNIQUE: Sonographic images of the thyroid gland were obtained in the longitudinal and transverse planes. CLINICAL HISTORY: Enlarged thyroid COMPARISON: None FINDINGS: The right lobe measures 2.6 x 4.9 x 1.5 cm. There is an isoechoic nodule in the lower pole measuring 16 mm. This is a, TI-RADS category 3. The left lobe measures 1.7 x 4.1 x 1.3 cm. There is a 12 mm isoechoic nodule that is a TI-RADS category 3. There is a tiny colloid cyst present. The isthmus measures 3 mm. This is normal. IMPRESSION: Bilateral TI-RADS category 3 thyroid nodules. The nodule on the right should be followed due to size. Can reevaluate the left thyroid nodule at the same time. Reviewed, Interpreted and Dictated by Tiara Reaves MD Transcribed by Kayla Vigil Authenticated and [facility]
[2024-03-26 15:04] LABS: Free T4 (Free Thyroxine) 1.14 ng/dl (0.78-2.19)
[2024-03-26 16:36] LABS: Thyroid Stimulating Hormone 1.09 uIU/mL (0.465-4.68)
[2024-03-27 08:14] LABS: Thyroid Peroxidase Antibodies <9 IU/mL (0-34)
== END 2024-03-26 23:59 | disposition home or self-care (01) ==
PROVIDERS: PCP Nurse Practitioner; Visit Provider Nurse Practitioner
DX: E04.9 Nontoxic goiter, unspecified (principal)
CPT/HCPCS: 36415; 76536; 84439; 84443; 86376

== ENCOUNTER 2024-03-26 13:23 | Outpatient (POV) | payer MEDICAID, SELFPAY | END 2024-03-26 23:59 | disposition home or self-care (01) | LOC: SC 13:23 | PROVIDERS: Visit Provider Specialist/Technologist | DX: Z00.00 Encounter for general adult medical examination without abnormal findings (principal) ==

== ENCOUNTER 2024-07-29 15:17 | Outpatient (CLI) | payer MEDICAID, SELFPAY ==
--- NOTE | 2024-07-29 15:20 | US_ITS ---
FINAL REPORT CLINICAL HISTORY: AXILLARY ADENOPATHY FINDINGS: Limited sonographic images were obtained of the left axillary region. There are normal size benign-appearing lymph nodes at the area of interest. No mass or fluid collection identified. IMPRESSION: Benign normal-sized lymph nodes at the area of interest. Reviewed, Interpreted and Dictated by Tiara Reaves MD Transcribed by Rebecca Uriostegui Authenticated and [facility]
== END 2024-07-29 23:59 | disposition home or self-care (01) ==
LOC: RAD 15:18
PROVIDERS: PCP Nurse Practitioner; Visit Provider Nurse Practitioner
DX: R59.0 Localized enlarged lymph nodes (principal)
CPT/HCPCS: 76642

== ENCOUNTER 2024-09-30 15:10 | Outpatient (CLI) | payer MEDICAID, SELFPAY ==
--- OUTSIDE RECORDS SUMMARY | 2024-09-30 15:13 | XMS_ITS | Clinical Summary ---
Author Organization Healthcare Address [facility] [place] [address] Care Team Providers Care Color Matcher Name Role Phone Lamine Hutchins MD Primary Care Provider [phone] Allergies No known active allergies Medications amoxicillin (Amoxil) 500 MG capsule TAKE 1 CAPSULE BY MOUTH THREE TIMES DAILY FOR 7 DAYS 02/08/2023 Active Active Problems Problem Noted Date Diagnosed Date Urinary tract infection with hematuria 2 STD exposure 08/16/2020 Immunizations Immunization Administration Dates Next Due DTaP, Unspecified 12/22/1997, 7,1996,07/24 HPV, Quadrivalent 06/05/2013,01/05/2010,10/22/19 09 Hep A, ped/adol, 2 dose 06/05/2013,01/05/2010, Hep B, Adolescent or Pediatric 03/24/1997,1996 HiB, unspecified 12/22/1997, 7,1996,07/24 IPV 1996,1996 Influenza, injectable, quadrivalent 01/05/2019 Influenza, injectable, quadr ivalent, preservative free 01/16/2017 Influenza, live, intranasal 06/05/2013, 0 MMR 12/22/1997 Meningococcal MCV4, Unspecified 10/21/2008 Meningococcal MCV4O 06/05/2013 OPV 05/24/1997 Tdap 05/25/2019,01/05/2010,07/09/2007 Varicella 05/24/1997 Family History Medical History Relation Name Comments Seizures Father No Known Problems Father's Brother Cancer Maternal Grandfather No Known Problems Maternal Grandmother No Known Problems Mother No Known Problems Mother's Brother 1 No Known Problems Mother's Brother 2 No Known Problems Mother's Sister 1 No Known Problems Mother's Sister 2 No Known Problems Paternal Grandfather No Known Problems Paternal Grandmother No Known Problems Sister No Known Problems Son Relation Name Status Comments Father Alive Father's Brother Alive Maternal Grandfather Maternal Grandmother Alive Mother Alive Mother's Brother 1 Mother's Brother 2 Alive Mother's Sister 1 Alive Mother's Sister 2 Paternal Grandfather Paternal Grandmother Alive Sister Alive Son Alive Social History Tobacco Use Types Packs/Day Years Used Date Smoking Tobacco: Former Cigarettes 0.3 1 2 012 - 2012 Smokeless Tobacco: Never Tobacco Cessation:Counseling Given: Not Answered Alcohol Use Standard Drinks/Week Comments Not Currently 0 (1 standard drink = 0.6 oz pur e alcohol) PHQ-2 Answer Date Recorded Patient Health Questionnaire-2 Score 0 02/11/2023 PHQ-2A Answer Date Recorded Patient Health Questionnaire-2 Score 0 02/11/2023 Comments No Sex and Gender Information Value Date Recorded Sex Assigned at Not on file Legal Sex Female 6:27 PM EDT Gender Identity Not on file Sexual Orientation Not on file Last Filed Vital Signs Vital Sign Reading Time Taken Comments Blood Pressure 122/79 02/11/2023 10:55 AM EST Pulse 82 02/11/2023 10:55 AM EST Temperature 37.1 C (98.7 F) 02/11/2023 10:55 AM EST Respiratory Rate 16 02/11/2023 10:55 AM EST Oxygen Saturation 99% 02/11/2023 10:55 AM EST Inhaled Oxygen Concentration - - Weight 68.7 kg (151 lb 7.3 oz) 02/11/2023 10:55 AM EST Height 160 cm (5' 3 ) 02/11/2023 10:55 AM EST Body Mass Index 26.83 02/11/2023 10:55 AM EST Plan of Treatment Health Maintenance Due Date Last Done Comments [facility]-/Child/Adol SDOH Screenings 1996 [facility]-IPV Vaccines (4 of 4 - 4-dose series) 2000 05/24/1997, 1996, 1996 [facility]- SDOH Screenings 2014 [facility]-Adult SDOH Screenings 2014 [id number] Vaccine (2 - season) 2023 11/02/2021 [facility]-Depression Screening 02/12/2024 02/11/2023 [facility]-Influenza Vaccine (#1) 11/23/202401/05, 01/16/2017, 06/05/2013, Additional history exists [facility]-Pap Smear 02/11/2026 02/11/2023 [facility]-DTaP,Tdap,and Td Vaccines (8 - Td or Tdap) 05/24/2029 05/25/2019, 01/05/2010, 07/09/2007, Additional history exists [facility]-Zoster Vaccines (1 of 2) 2046 10/30/2001, 05/24/1997 [facility]-Hepatitis B Vaccines Completed 997, 1996, 1996 [facility]-HIB Vaccines Completed 12/22/1997, 04/1996, 1996, Additional history exists [facility]-Varicella Vaccines Completed 10/30/2001, 1997 HPV Vaccines Completed 06/05/2013, 12/23, 10/21/2008 [facility]-Hepatitis A Vaccines Completed 014, 01/05/2010, 10/21/2008 [facility]-HIV Screening Completed 08/16/2020, , 08/10/2016 [facility]-Hepatitis C Screening Completed 2020, 12/15/2018, 08/10/2016 [facility]-Obesity Intervention Completed 02/11/2023 [facility]-Pneumococcal Vaccine: Pediatrics (0 to 5 Years) and At-Risk Patients (6 to 49 Years) Aged Out No longer eligible based on patient's age to complete this topic [facility]-Rotavirus Vaccines Aged Out No lo nger eligible based on patient's age to complete this topic Procedures Procedure Name Priority Date/Time Associated Diagnosis Comments PAP TEST - CYTOLOGY Routine 02/11/2023 1 1:41 AM EST Encounter for gynecological examination without abnormal finding HEPATITIS C ANTIBODY W/REFLEX TO HCV QUANT PCR Routine 08/16/2020 4:07 PM EDT HIV 1/2 ANTIBODY/ANTIGEN SCREEN WITH REFLEX TO HIV I/II DIFFERENTIATION Routine 08/16/2020 4:07 PM EDT from Last 3 Months or Most Recently Relevant to Health Maintenance Results * Pap Test (02/11/2023 11:41 AM EST) Case Report Cytology Case: [id number] Authorizing Provider: Jennifer Green APRN, Collected: 02/11/2023 1141 CNM Ordering Location: Obstetrics & Gynecology Received: 02/12/2023 1218 First Screen: Keron Weller Specimen: ThinPrep Pap Test, Liquid-Based Cervical/Vaginal 02/26/2023 9:09 AM EST [facility] Interpretation NEGATIVE FOR INTRAEPITHELIAL LESION OR MALIGNANCY 02/26/2023 9:09 AM EST [facility] at 0909 EST Specimen Adequacy Satisfactory for evaluation; endocervical/velásquez sformation zone component present. Slide imaged by the ThinPrep Imaging system and selected 22 kelsey reviewed then full manual screening. 02/26/2023 9:09 AM EST [facility] Cervical cytology is a screening test primarily for squamous cancers and precursors and has associated false negative and positive results. New technologies such as liquid based sampling may decrease but will not eliminate all false negative results. Regular screening and follow-up of unexplained clinical signs and symptoms are recommended to minimize false negative results. Please see the ASCCP website (www.asccp.org)fo r followup recommendations. If HPV testing was requested, correlation with the results is suggested (please call Microbiology at [phone] for results). 02/26/2023 9:09 AM EST [facility] Menstrual Status Cyclic 02/27/20 9:09 AM EST [facility] Contraceptive History Not Applicable 02/26/2023 9:09 AM EST [facility] Screening Type Routine Screen 2022 9:09 AM EST [facility] High Risk? No 02/26/2023 9:09 AM [facility] HPV Testing Requested? Request HPV testing if ASCUS or LSIL. 02/26/2023 9:09 AM EST [facility] Previous Cancer History No 02/26/2023 9:09 AM EST [facility] Clinical Information Z01.419 - Encounter for gynecological examination without abnormal finding [ICD-10-CM] 02/26/2023 9:09 AM EST [facility] Last Menstrual Period 01/08/2023 02/26/2023 9:09 AM EST [facility] Swab Vaginal and cervical cytologic material / Unknown Non-blood Collection / Unknown 02/11/2023 11:41 AM EST 02/12/2023 12:18 PM EST Jennifer Green APRN, CNM LAB CYTOLOGY ORDERA BLES Final Result [facility] [address] [place] [address] * HIV 1 & 2 Antibody/Antigen Screen (08/16/2020 4:07 PM EDT) HIV 1 Result NONREACTIVE Screening for HIV 1 and 2 antibodies is NONREACTIVE. No confirmatory testing is required. [facility] 08/16/2020 4:07 PM EDT 08/16/2020 6:10 PM EDT Jennifer Green APRN, CNM LAB BLOOD ORDERABLE S Final Result [facility] * Hepatitis C Antibody (08/16/2020 4:07 PM EDT) Hepatitis C Antibody NEGATIVE Reference Range: Negative [facility] 08/16/2020 4:07 PM EDT 08/16/2020 6:10 PM EDT Jennifer Green APRN, CNM LAB BLOOD ORDERABLE S Final Result [facility] from Last 3 Months or Most Recently Relevant to Health Maintenance Insurance [employer] Care Teams Color Matcher Relationship Specialty Start Date End Date Lamine Hutchins MD [address] [place] [address] [address] [place] [id number] PCP - General 08/05/20
--- OUTSIDE RECORDS SUMMARY | 2024-09-30 15:13 | XMS_ITS | Encounter Summary ---
Author Organization Healthcare Address [address] [place] [address] Care Team Providers Care Continuous Process Coffee Roaster Name Role Phone Lamine Hutchins MD Primary Care Provider [phone] Reason for Visit * Reason Comments Med Refill Encounter Details Date Type Department Care Team (Late st Contact Info) Description 04/02/2021 Refill Obstetrics & Gynecology [address] [place] [address] Jennifer Green, [employer], CN [address] [place] [address] Social History Tobacco Use Types Packs/Day Years Used Date Smoking Tobacco: Every Day Smokeless Tobacco: Never Alcohol Use Standard Drinks/Week Comments Yes 0 (1 standard drink = 0.6 oz pur e alcohol) Comments Unknown Sex and Gender Information Value Date Recorded Sex Assigned at Not on file Legal Sex Female 6:27 PM EDT Gender Identity Not on file Sexual Orientation Not on file documented as of this encounter Plan of Treatment Not on file documented as of this encounter Visit Diagnoses Not on filedocumented in this encounter Care Teams Continuous Process Coffee Roaster Relationship Specialty Start Date End Date Lamine Hutchins MD [address] [facility] [address] [place] [id number] PCP - General 08/05/20 documented as of this encounter
--- NOTE | 2024-09-30 15:30 | US_ITS ---
FINAL REPORT TECHNIQUE: Real-time grayscale and color ultrasound of the thyroid was performed. CLINICAL HISTORY: evaluate the right catagory 3 nodule due to size COMPARISON: 03/26/2024 FINDINGS: The thyroid gland measures 47 x 15 x 21 mm on the right and 39 x 14 x 16 mm on the left. The isthmus measures 3 mm. The parenchyma is unremarkable . Nodules: Right isoechoic 12 mm greatest dimension TR 3 nodule, smaller than on previous exam. Left hypoechoic 7 mm TR 3 nodule, decreased in size. IMPRESSION: Interval decrease in size of bilateral TR 3 lesions. No further follow-up required per TI-RADS criteria. Reviewed, Interpreted and Dictated by Yadiel Pereira MD Transcribed by Rebecca Uriostegui Authenticated and '[facility]
== END 2024-09-30 23:59 | disposition home or self-care (01) ==
LOC: RAD 15:11
PROVIDERS: PCP Nurse Practitioner; Visit Provider Nurse Practitioner
DX: E07.9 Disorder of thyroid, unspecified (principal); E04.1 Nontoxic single thyroid nodule
CPT/HCPCS: 76536

== ENCOUNTER 2024-11-11 17:20 | Outpatient (CLI) | payer MEDICAID, SELFPAY ==
[2024-11-11 20:38] LABS: Influenza A, PCR Not Detected (NotDetected); Influenza B, PCR Not Detected (NotDetected)
[2024-11-12 10:43] LABS: Coronavirus 19, PCR Detected (NotDetected)
--- OUTSIDE RECORDS SUMMARY | 2024-11-12 11:02 | XMS_ITS | Clinical Summary ---
Author Organization Healthcare Address [facility] [place] [address] Care Team Providers Care Therapeutic Program Worker Name Role Phone Lamine Hutchins MD Primary Care Provider [phone] Allergies No known active allergies Medications amoxicillin [...] SDOH Screenings 2014 [facility]-Adult SDOH Screenings 2014 [id number] Vaccine (2 - season) 2023 11/02/2021 [facility]-Depression [...] 11:41 AM EST) Case Report Cytology Case: [id number] Authorizing Provider: Jennifer Green APRN, Collected: 02/11/2023 [...] results is suggested (please call Microbiology at [phone] for results). 02/26/2023 9:09 AM EST [facility] [...] Cancer History No 02/26/2023 9:09 AM EST [facility] Clinical Information Z01.419 - Encounter for gynecological examination without abnormal finding [ICD-10-CM] 02/26/2023 9:09 AM EST [facility] Last Menstrual Period 01/08/2023 02/26/2023 9:09 AM EST [facility] Swab Vaginal and cervical cytologic material / Unknown Non-blood Collection / Unknown 02/11/2023 11:41 AM EST 02/12/2023 12:18 PM EST Jennifer Green APRN, CNM LAB CYTOLOGY ORDERA BLES Final Result [facility] [address] [place] [address] * HIV 1 & 2 Antibody/Antigen Screen [...] Health Maintenance Insurance [employer] Care Teams Therapeutic Program Worker Relationship Specialty Start Date End Date Lamine Hutchins MD [address] [place] [address] [address] [place] [id number] PCP - General 08/05/20
--- OUTSIDE RECORDS SUMMARY | 2024-11-12 11:02 | XMS_ITS | Encounter Summary ---
Author Organization Healthcare Address [address] [place] [address] Care Team Providers Care Well Service Floor Worker Name Role Phone Lamine Hutchins MD Primary Care Provider [phone] Reason for Visit * Reason Comments Med Refill Encounter Details Date Type Department Care Team (Late st Contact Info) Description 04/02/2021 Refill Obstetrics & Gynecology [address] [place] [address] Jennifer Green, [employer] CN [address] [place] [address] Social History Tobacco Use Types Packs/Day Years [...] on filedocumented in this encounter Care Teams Well Service Floor Worker Relationship Specialty Start Date End Date Lamine Hutchins MD [address] [facility] [address] [place] [address] PCP - General 08/05/20 documented as of this encounter
== END 2024-11-11 23:59 | disposition home or self-care (01) ==
LOC: LAB.DROPOF 11-12 10:57
PROVIDERS: PCP Nurse Practitioner Family; Visit Provider Nurse Practitioner Family
DX: J06.9 Acute upper respiratory infection, unspecified (principal)
CPT/HCPCS: 87631